=== PATIENT | female | born 1955 | race Caucasian/White ===

== ENCOUNTER 2024-01-24 10:50 | Emergency (ER) | payer OTHER, MEDICAID ==
[~2024-01-24] VITALS: Ht 162.6 cm; Wt 72.6 kg
[2024-01-24 10:50] VITALS: BP_SYST 136; PULSE 77; RESP 17; TEMP 98; O2SAT 97
[2024-01-24] MEDS: NACL 0.9% 1,000 ML IV ONE (11:19)
[2024-01-24] MEDS: ONDANSETRON HCL 4 MG/2 ML VIAL IVP ONE (11:20)
[2024-01-24] MEDS ORDERED: iohexoL 350 mgI/mL, 100 ML INFUS..BTL IV ONE (11:30)
[2024-01-24 11:35] LABS: BASOPHILS % (AUTO) 0.5 % (0.0-2.0); EOSINOPHILS % (AUTO) 0.5 % (0.0-4.0); HEMATOCRIT 39.5 % (36-48); HEMOGLOBIN 13.4 g/dL (12.0-16.0); LYMPHOCYTES # (AUTO) 1.1 K/uL (1.0-5.5); MEAN CORPUSCULAR HEMOGLOBIN 31 pg (27-31); MEAN CORPUSCULAR HGB CONC 34 % (32-36); MEAN CORPUSCULAR VOLUME 93 fL (79.0-98.0); MONOCYTES # (AUTO) 0.6 K/uL (0.0-1.0); MONOCYTES % (AUTO) 7.4 % (1.7-9.3); NEUTROPHILS # (AUTO) 6.9 K/uL (1.8-7.7); NEUTROPHILS % (AUTO) 78.6 % (40.0-70.0); PLATELET COUNT (AUTO) 327 K/uL (130-430); RED BLOOD CELL COUNT(AUTO) 4.27 MIL/uL (4.2-6.2); RED CELL DISTRIBUTION WIDTH 13.4 % (9.0-15.0); WHITE BLOOD COUNT (AUTO) 8.8 K/uL (4.8-10.8)
[2024-01-24 11:36] LABS: ALBUMIN 3.2 g/dL (3.4-4.8); BILIRUBIN,DIRECT 0.1 mg/dL (0.0-0.3); CALCIUM 9.1 mg/dL (8.4-11.0); CREATININE 0.87 mg/dL (0.55-1.30); POTASSIUM 3.8 mmol/L (3.5-5.1); TOTAL BILIRUBIN 0.5 mg/dL (0.0-1.0); TOTAL PROTEIN, SERUM 7.3 g/dL (6.4-8.3)
[2024-01-24] MEDS: ACETAMINOPHEN 650 MG SUPP.RECT RC ONE (16:14)
[2024-01-24 16:18] VITALS: BP_SYST 131; PULSE 80; RESP 19; TEMP 96.6; O2SAT 98
== END 2024-01-24 16:18 | disposition short-term general hospital (02) ==
LOC: SED 10:50
DX: K56.609 Unspecified intestinal obstruction, unspecified as to partial versus complete obstruction (principal); K43.9 Ventral hernia without obstruction or gangrene; R10.30 Lower abdominal pain, unspecified; R11.2 Nausea with vomiting, unspecified; G43.909 Migraine, unspecified, not intractable, without status migrainosus; Z90.49 Acquired absence of other specified parts of digestive tract
CPT/HCPCS: 99285; 74177; 96374; 96361; 80076; 80048; 83690; 85025; 36415; Q9967; J2405; J7030